=== PATIENT | female | born 1990 | race Caucasian/White ===

== ENCOUNTER → 2021-01-05 07:24 | Outpatient (CLI) | payer OTHER, MEDICAID, SELFPAY ==
[2021-01-05 08:34] LABS: Add Manual Diff / Slide Review NO; Basophils Absolute Auto 0 /uL (0-100); Basophils Percent Auto 0.3 % (0-2); Eosinophils Absolute Auto 100 /uL (0-450); Eosinophils Percent Auto 2.3 % (2-4); Hematocrit 40.3 % (36-46); Hemoglobin 13.7 g/dL (12.0-16.0); Lymphocytes Absolute Auto 2300 /uL (1100-4500); Lymphocytes Percent Auto 36.3 % (25-40); Mean Corpuscular Volume 94.3 fL (80-100); Monocytes Absolute Auto 400 /uL (0-900); Monocytes Percent Auto 7.1 % (3-14); Neutrophils Absolute Auto 3400 /uL (1500-7000); Platelet Count 300 X10^3/uL (150-400); Red Blood Cell Count 4.28 X10^6/uL (4.0-5.2); Red Cell Distribution Width 12.3 % (11.6-14.8); White Blood Cell Count 6.2 X10^3/uL (4.5-11.0)
[2021-01-05 08:59] LABS: Alanine Aminotransferase 38 IU/L (<35); Albumin Globulin Ratio 1.3 (1.0-2.8); Alkaline Phosphatase 63 U/L (38-126); Aspartate Aminotransferase 34 IU/L (14-36); Bilirubin Total 0.5 mg/dL (0.2-1.3); Blood Urea Nitrogen 14 mg/dL (7-17); Calcium 9.3 mg/dL (8.4-10.2); Carbon Dioxide 24 mmol/L (22-32); Chloride 107 mmol/L (98-107); Cholesterol 219 mg/dL (140-199); Estimated Glomerular Filt Rate > 60.0 mL/min (>60); Glucose 78 mg/dL (70-100); HDL Cholesterol 46 mg/dL (40-60); HEMOLYSIS < 15 (0-50); LDL Cholesterol Calculated 142 mg/dL (<100); Potassium 4.2 mmol/L (3.4-5.1); Sodium 140 mmol/L (137-145); Triglycerides 156 mg/dL (35-150)
[2021-01-05 09:34] LABS: Thyroid Stimulating Hormone 1.51 uIU/mL (0.47-4.68)
== END ==
PROVIDERS: PCP Registered Nurse; Referring Provider Registered Nurse; Visit Provider Registered Nurse
DX: R63.5 Abnormal weight gain (principal); R53.83 Other fatigue; Z83.42 Family history of familial hypercholesterolemia
CPT/HCPCS: 36415; 80053; 80061; 84439; 84443; 85025

== ENCOUNTER → 2021-09-21 08:47 | Outpatient (CLI) | payer OTHER, MEDICAID, SELFPAY | PROVIDERS: PCP Registered Nurse; Visit Provider Physician Assistant | DX: J02.9 Acute pharyngitis, unspecified (principal) | CPT/HCPCS: 87070 ==

== ENCOUNTER → 2021-10-18 17:01 | Outpatient (CLI) | payer OTHER, MEDICAID, SELFPAY ==
[2021-10-18 17:45] LABS: Add Manual Diff / Slide Review NO; Basophils Absolute Auto 0 /uL (0-100); Basophils Percent Auto 0.7 % (0-2); Eosinophils Absolute Auto 100 /uL (0-450); Eosinophils Percent Auto 1.4 % (2-4); Hematocrit 38.9 % (36-46); Hemoglobin 13.6 g/dL (12.0-16.0); Lymphocytes Absolute Auto 2800 /uL (1100-4500); Lymphocytes Percent Auto 46.6 % (25-40); Mean Corpuscular Hemoglobin 33.3 PG (26-34); Mean Corpuscular Volume 94.9 fL (80-100); Monocytes Absolute Auto 500 /uL (0-900); Monocytes Percent Auto 8.1 % (3-14); Neutrophils Absolute Auto 2600 /uL (1500-7000); Neutrophils Percent Auto 43.2 % (50-75); Platelet Count 321 X10^3/uL (150-400); Red Cell Distribution Width 12.5 % (11.6-14.8); White Blood Cell Count 6.1 X10^3/uL (4.5-11.0)
[2021-10-18 17:54] LABS: Monotest Negative (Negative)
[2021-10-18 18:18] LABS: Alanine Aminotransferase 24 IU/L (<35); Albumin 4.4 g/dL (3.5-5.0); Albumin Globulin Ratio 1.2 (1.0-2.8); Alkaline Phosphatase 53 U/L (38-126); Aspartate Aminotransferase 33 IU/L (14-36); BUN Creatinine Ratio 15.4 (6-22); Bilirubin Total 0.6 mg/dL (0.2-1.3); Blood Urea Nitrogen 12 mg/dL (7-17); Calcium 8.9 mg/dL (8.4-10.2); Carbon Dioxide 23 mmol/L (22-32); Chloride 106 mmol/L (98-107); Estimated Glomerular Filt Rate > 60 mL/min (>60); Globulin 3.6 g/dL (1.7-4.1); Glucose 92 mg/dL (70-100); Potassium 3.9 mmol/L (3.4-5.1); Sodium 140 mmol/L (137-145)
[2021-10-18 18:31] LABS: Total Iron Binding Capacity 380 ug/dL (265-497); Transferrin 292 mg/dL (206-381)
[2021-10-18 18:52] LABS: TSH w/ Reflex to FT4 1.14 uIU/mL (0.47-4.68)
[2021-10-18 18:53] LABS: Ferritin 59 ng/mL (6-137)
[2021-10-18 18:57] LABS: Hepatitis B Surface Antigen NEGATIVE s/c (NEGATIVE)
[2021-10-18 19:11] LABS: Hep C Virus Ab w/Reflex Quant NEGATIVE s/c (NEGATIVE)
[2021-10-18 19:21] LABS: Iron 101 ug/dL (37-170); Percent Iron Saturation 27 % (15-50)
[2021-10-18 19:27] LABS: HEMOLYSIS 67 (0-50)
[2021-10-18 19:28] LABS: HEMOLYSIS 79 (0-50)
[2021-10-19 04:13] LABS: Hepatitis B Core AB w/Reflex Negative (Negative)
[2021-10-19 07:11] LABS: EBV Ab VCA, IgG >600.0 U/mL (0.0-17.9); EBV EBNA Antibody IgG < 18.0 U/mL (0.0-17.9); EBV Early Antigen AB,IgG <9.0 U/mL (0.0-8.9); EBV Nuclear Antigen Ab IgG <18.0 U/mL (0.0-17.9); EBV Virus IgG Ab > 600.0 U/mL (0.0-17.9); EBV Virus IgM Ab < 36.0 U/mL (0.0-35.9)
[2021-10-20 07:22] LABS: EBV Ab VCA, IgM <36.0 U/mL (0.0-35.9)
== END ==
PROVIDERS: PCP Registered Nurse Diabetes Educator; Referring Provider Registered Nurse Diabetes Educator; Visit Provider Registered Nurse Diabetes Educator
DX: J02.9 Acute pharyngitis, unspecified (principal); R21 Rash and other nonspecific skin eruption; R53.83 Other fatigue; R74.8 Abnormal levels of other serum enzymes
CPT/HCPCS: 36415; 80053; 82728; 83540; 83550; 84443; 85025; 86318; 86663; 86664; 86665; 86704; 86803; 87340

== ENCOUNTER → 2021-12-07 09:34 | Outpatient (CLI) | payer OTHER, MEDICAID, SELFPAY ==
--- NOTE | 2021-12-07 09:35 | DI.US.S_ITS ---
PROCEDURE: US ABDOMEN LIMITED INDICATIONS: elevated liver enzymes TECHNIQUE: Real-time focused scanning was performed of the abdomen, with image documentation. COMPARISON: None. FINDINGS: Liver is diffusely increased in echogenicity. No focal hepatic abnormalities identified. Normal hepatic size. No gallstones identified. Normal gallbladder wall. No pericholecystic fluid. Negative sonographic Goss sign. No biliary dilatation. Pancreas is suboptimally visualized. IMPRESSION: Increased hepatic echogenicity possibly related to hepatic steatosis but other sources of hepatocellular disease cannot be excluded. Recommend clinical correlation. Dictated by: Royce Peraza [facility] Interpreted: Johann Neff MD on 12/07/2021 at 10:46 Transcribed by: JAQUAN on 12/07/2021 at 10:47 Approved by: Johann Neff M.D. on 12/07/2021 at 14:26
== END ==
PROVIDERS: PCP Registered Nurse Diabetes Educator; Referring Provider Registered Nurse Diabetes Educator; Visit Provider Registered Nurse Diabetes Educator
DX: R74.8 Abnormal levels of other serum enzymes (principal)
CPT/HCPCS: 76705

== ENCOUNTER → 2022-08-07 12:33 | Outpatient (CLI) | payer OTHER, MEDICAID, SELFPAY ==
[2022-08-07 13:20] LABS: Influenza A - CEPHEID Flu A NEGATIVE (NEGATIVE); Influenza B - CEPHEID Flu B NEGATIVE (NEGATIVE); Respiratory Syncytial Virus Negative (Negative)
[2022-08-07 13:24] LABS: COVID-19 CEPHEID 4-PLEX PCR Negative (Negative)
== END ==
PROVIDERS: PCP Registered Nurse Diabetes Educator; Visit Provider Nurse Practitioner Family
DX: R05.9 Cough, unspecified (principal); R09.81 Nasal congestion; Z20.822 Contact with and (suspected) exposure to COVID-19
CPT/HCPCS: 0241U

== ENCOUNTER → 2023-04-30 09:52 | Outpatient (CLI) | payer OTHER, MEDICAID, SELFPAY | PROVIDERS: PCP Registered Nurse Diabetes Educator; Visit Provider Physician Assistant | DX: J02.9 Acute pharyngitis, unspecified (principal) | CPT/HCPCS: 87081; 87147 ==

== ENCOUNTER → 2023-05-23 11:35 | Outpatient (CLI) | payer OTHER, MEDICAID, SELFPAY ==
[2023-05-23 12:19] LABS: Influenza A - CEPHEID Flu A NEGATIVE (NEGATIVE); Influenza B - CEPHEID Flu B NEGATIVE (NEGATIVE); Respiratory Syncytial Virus Negative (Negative)
[2023-05-23 12:47] LABS: COVID-19 CEPHEID 4-PLEX PCR Negative (Negative)
== END ==
PROVIDERS: PCP Registered Nurse Diabetes Educator; Visit Provider Nurse Practitioner Family
DX: R05.1 Acute cough (principal)
CPT/HCPCS: 0241U

== ENCOUNTER → 2023-06-13 09:20 | Outpatient (CLI) | payer OTHER, MEDICAID, SELFPAY ==
[2023-06-13 10:06] LABS: Alanine Aminotransferase 26 IU/L (<35); Albumin Globulin Ratio 1.4 (1.0-2.8); Alkaline Phosphatase 59 U/L (38-126); Aspartate Aminotransferase 23 IU/L (14-36); BUN Creatinine Ratio 13.3 (6-22); Bilirubin Total 0.7 mg/dL (0.2-1.3); Blood Urea Nitrogen 11 mg/dL (7-17); Calcium 9.6 mg/dL (8.4-10.2); Carbon Dioxide 25 mmol/L (22-32); Chloride 105 mmol/L (98-107); Estimated Glomerular Filt Rate > 60 mL/min (>60); Globulin 2.9 g/dL (1.7-4.1); Glucose 83 mg/dL (70-100); HEMOLYSIS < 15 (0-50); Potassium 4.2 mmol/L (3.4-5.1); Sodium 138 mmol/L (137-145); Total Protein 6.9 g/dL (6.3-8.2)
== END ==
PROVIDERS: PCP Registered Nurse Diabetes Educator; Referring Provider Physician Assistant; Visit Provider Physician Assistant
DX: B35.1 Tinea unguium (principal); Z79.899 Other long term (current) drug therapy
CPT/HCPCS: 36415; 80053

== ENCOUNTER → 2023-07-11 18:41 | Outpatient (CLI) | payer OTHER, MEDICAID, SELFPAY | PROVIDERS: PCP Registered Nurse Diabetes Educator; Visit Provider Physician Assistant Medical | DX: J02.9 Acute pharyngitis, unspecified (principal) | CPT/HCPCS: 87070; 87880 ==

== ENCOUNTER → 2023-08-29 11:08 | Outpatient (CLI) | payer OTHER, MEDICAID, SELFPAY ==
[2023-08-29 12:05] LABS: Alanine Aminotransferase 19 IU/L (<35); Albumin 3.8 g/dL (3.5-5.0); Albumin Globulin Ratio 1.3 (1.0-2.8); Alkaline Phosphatase 56 U/L (38-126); Aspartate Aminotransferase 20 IU/L (14-36); Bilirubin Total 0.4 mg/dL (0.2-1.3); Bilirubin Unconjugated 0.2 mg/dL (0.0-1.1); HEMOLYSIS < 15 (0-50); Total Protein 6.8 g/dL (6.3-8.2)
== END ==
PROVIDERS: PCP Registered Nurse Diabetes Educator; Referring Provider Registered Nurse Diabetes Educator; Visit Provider Registered Nurse Diabetes Educator
DX: B35.1 Tinea unguium (principal)
CPT/HCPCS: 36415; 80076

== ENCOUNTER → 2023-10-10 13:45 | Outpatient (CLI) | payer OTHER, SELFPAY ==
[2023-10-10 14:36] LABS: Alanine Aminotransferase 15 IU/L (<35); Albumin 3.8 g/dL (3.5-5.0); Albumin Globulin Ratio 1.5 (1.0-2.8); Alkaline Phosphatase 58 U/L (38-126); Aspartate Aminotransferase 21 IU/L (14-36); Bilirubin Total 0.3 mg/dL (0.2-1.3); Bilirubin Unconjugated 0.2 mg/dL (0.0-1.1); Globulin 2.6 g/dL (1.7-4.1); HEMOLYSIS < 15 (0-50); Total Protein 6.4 g/dL (6.3-8.2)
== END ==
PROVIDERS: PCP Registered Nurse Diabetes Educator; Referring Provider Registered Nurse Diabetes Educator; Visit Provider Registered Nurse Diabetes Educator
DX: B35.1 Tinea unguium (principal)
CPT/HCPCS: 36415; 80076

== ENCOUNTER → 2023-11-03 08:58 | Outpatient (CLI) | payer OTHER, SELFPAY ==
[2023-11-03 13:44] LABS: Urine N gonorrhoeae NOT DETECTED
[2023-11-03 13:45] LABS: Urine Chlamydia NOT DETECTED
[2023-11-03 17:51] LABS: Hepatitis B Surface Antigen NEGATIVE s/c (NEGATIVE)
[2023-11-03 18:11] LABS: HIV 1 & 2 Ab/Ag 4th Gen Combo NEGATIVE (NEGATIVE); Hep C Virus Ab w/Reflex Quant NEGATIVE s/c (NEGATIVE)
[2023-11-04 03:31] LABS: HSV 2 IGG AB < 0.91 index (0.00-0.90); HSV1IGG < 0.91 index (0.00-0.90)
[2023-11-04 05:18] LABS: RPR Screen Non Reactive (Non Reactive)
== END ==
PROVIDERS: PCP Registered Nurse Diabetes Educator; Referring Provider Registered Nurse Diabetes Educator; Visit Provider Registered Nurse Diabetes Educator
DX: Z72.51 High risk heterosexual behavior (principal)
CPT/HCPCS: 36415; 86592; 86695; 86696; 86803; 87340; 87389; 87491; 87591

== ENCOUNTER 2024-05-18 21:32 | Emergency (ER) | payer OTHER, SELFPAY ==
[2024-05-18] VITALS (7 sets, daily range): BP systolic 108–134; BP diastolic 58–66; PULSE 67–96; RESP 17–21; TEMP 36.9; O2SAT 92–97; BMI 31.8
--- NOTE | 2024-05-18 22:37 | ED_ITS ---
HPI - URI/Sore Throat General Chief Complaint: Upper Respiratory Symptoms Stated Complaint: fever, cough, mucus Time Seen by Provider: 05/18/24 22:37 Source: patient, RN notes reviewed and old records reviewed Mode of arrival: Ambulatory Limitations: no limitations History of Present Illness HPI Narrative: 34-year-old presents with complaint of fevers, some mild nasal congestion, occasional sore throat and cough. Patient has had several days of symptoms. Has had fevers up to 103 F. states her entire chest and back hurt when she coughs but otherwise no chest pain. She is states she has been wheezy and that she can hear a wheeze. No shortness of breath. No nausea or vomiting. No diarrhea or constipation. No urinary symptoms. No new swelling in extremities. No rash or skin changes. Home medications include bupropion, escitalopram, oral contraceptive. States allergies to sulfa. No tobacco, occasional alcohol, marijuana no other recreational drugs. She states no known sick contacts. Does have 3 children at home she was accompanied by her significant other. Patient tried Tylenol with Mucinex for fever had minimal improvement. Has not tried any ibuprofen Related Data Home Medications Medication Instructions Recorded Confirmed fexofenadine 180 mg tablet 180 mg PO DAILY 05/22/21 11/27/23 (Rosi Allergy) magnesium glycinate 100 mg (as 200 mg PO DAILY 03/19/23 11/27/23 glycinate) tablet multivitamin (Daily Multi-Vitamin 1 tab PO DAILY 03/19/23 11/27/23 tablet) clindamycin phosphate 1 % lotion topical 11/03/23 11/27/23 spironolactone 50 mg tablet 50 mg PO BID 11/03/23 11/27/23 Previous Rx's Medication Instructions Recorded clobetasol 0.05 % topical ointment 1 applic topical BID #45 grams 01/02/22 fluticasone propionate 50 1 spray intranasal Q12H #16 grams 05/23/23 mcg/actuation nasal spray,suspension (Flonase Allergy Relief) bupropion HCl 150 mg 24 hr tablet, 150 mg PO QAM #90 tabs 11/03/23 extended release escitalopram oxalate 10 mg tablet 10 mg PO DAILY #90 tabs 11/03/23 (Lexapro) terbinafine HCl 250 mg tablet 250 mg PO DAILY #42 tabs 11/03/23 levonorgestrel 0.15 mg-ethinyl See Rx Instructions .Route 03/29/24 estradiol 30 mcg tablets,3 mos .COMPLEX #91 tabs pack(91) (Setlakin) Allergies Allergy/AdvReac Type Severity Reaction Status Date / Time sulfamethoxazole Allergy Unknown Verified 11/27/23 08:17 [From ] trimethoprim [From ] Allergy Unknown Verified 11/27/23 08:17 SULFA Allergy Mild RASH,HIVES Uncoded 11/27/23 08:17 Review of Systems Review of Systems ROS Unobtainable: All systems reviewed & are unremarkable except as noted in HPI and below Patient History Medical History Fatty liver disease, nonalcoholic Dyshidrotic eczema Anxiety with depression Screening for HPV (human papillomavirus) Cervical cancer screening Foot pain (~2012) Carpal tunnel syndrome Ankle pain (~2012) Painful menstrual periods Heavy menstrual period Weight gain Fatigue Surgical History Anesthesia History of ankle surgery (~2012) Family History Father Hypertension Hyperlipidemia Mother Anxiety History of bipolar disorder PMDD (premenstrual dysphoric disorder) Depression Hyperlipidemia Mental health problem Brother Anxiety History of bipolar disorder Depression Mental health problem Grandfather Cancer Diabetes mellitus Hyperlipidemia Grandmother Hypertension Hyperlipidemia Grandfather Eye cancer Prostate cancer Grandmother Cancer Social History Smoking Status: Never smoker Smoking Status: Never smoker alcohol intake frequency: a few times a week Substance Use Type: marijuana Exam Narrative Exam Narrative: GEN: well nourished, well appearing female, alert and oriented x 3, patient appears to be in mild distress. HEENT: Atraumatic, pupils are equal round reactive to light, extraocular movements are intact, nares are clear, TMs are clear with no fluid, there is no conjunctival pallor. Throat is erythematous mild tonsillar enlargement, no exudates, midline uvula with no deviation, patient is slightly hoarse no stridor. HEART: Regular rate and rhythm without murmur, clicks, rubs. LUNGS:Lungs clear to auscultation, no wheezes, rales, crackles, chest moves symmetrically, no tachypnea or accessory muscle use ABD:bowel sounds normal, soft, non-tender, no guarding, rebound, rigidity, no masses noted, no hepatosplenomegaly :No CVA tenderness MSCL: Non-tender, no muscle atrophy, muscles strength 5/5 upper and lower extremities, full range of motion, normal gait NEURO:CN 2-12 intact, sensation normal. Initial Vital Signs Initial Vital Signs: Vital Signs Pulse Rate 78 05/18/24 21:35 Blood Pressure 134/66 05/18/24 21:35 Pulse Oximetry 94 05/18/24 21:35 Oxygen Delivery Method Room Air 05/18/24 21:35 Course Orders Ordered: ED Orders 05/18/24 22:43 Chest [XR chest 2V] Stat 05/18/24 22:44 Strep Grp A by PCR Rapid Stat Vital Signs Vital signs: Vital Signs - 8 hr 05/18/24 21:35 05/18/24 21:35 05/18/24 21:38 Temperature 98.4 F Pulse Rate 78 96 H Respiratory Rate 19 Blood Pressure 134/66 134/66 Pulse Oximetry 94 97 Oxygen Delivery Method Room Air Room Air 05/18/24 22:00 05/18/24 22:00 05/18/24 22:30 Temperature Pulse Rate 82 77 Respiratory Rate 21 Blood Pressure 126/64 Pulse Oximetry 94 92 Oxygen Delivery Method Room Air Room Air 05/18/24 22:30 05/18/24 22:56 05/18/24 22:56 Temperature Pulse Rate 92 H Respiratory Rate 19 Blood Pressure 116/66 112/58 L Pulse Oximetry 95 Oxygen Delivery Method 05/18/24 23:00 05/18/24 23:00 05/18/24 23:30 Temperature Pulse Rate 72 Respiratory Rate Blood Pressure 108/62 113/59 L Pulse Oximetry 96 Oxygen Delivery Method Room Air 05/18/24 23:30 Temperature Pulse Rate 67 Respiratory Rate 17 Blood Pressure Pulse Oximetry 96 Oxygen Delivery Method Room Air MDM - URI/Sore Throat Lab Data Labs: Lab Results 05/18/24 Range/Units 22:44 Group A Strep (PCR) Negative (Negative) Imaging Data Chest x-ray: Radiologist's Impression: Close Chest X-Ray (Signed) Connie Mcclain - 05/18/24 Abdomen Ultrasound (Signed) Johann Neff - 12/07/21 Launch?[address] [address] XRay Report Signed Patient: Kelsi Sun MR#: [id number] : 1990 Acct:[id number] Age/Sex: 34 / F Date of Service: 05/18/24 Loc: ED Accession Number: [id number] Procedure: XR chest 2V Ordering Provider: Kamilla Madsen D.O. PROCEDURE: XR CHEST 2V INDICATIONS: fever, cough, chest feels wheezy TECHNIQUE: 2 views of the chest were acquired. COMPARISON: None. FINDINGS: Surgical changes and devices: None. Lungs and pleura: Lungs are clear. No pleural effusions or pneumothorax. Mediastinum: Mediastinal contours are normal. Heart size is normal. Bones and chest wall: No suspicious bony abnormalities. Soft tissues appear unremarkable. IMPRESSION: No acute pulmonary process. Dictated by: Connie Mcclain M.D. on 05/18/2024 at 23:28 Approved by: Connie Mcclain M.D. on 05/18/2024 at 23:29 [facility] Narrative Medical decision making narrative: 34-year-old female has nasal congestion seems most likely upper respiratory infection does have little bit of occasional sore throat and some tonsillar enlargement erythema there has been quite a bit of strep recently so we will obtain rapid strep. Patient's lungs are clear but she states has had some occasional wheeze although none appreciated on exam so chest x-ray was obtained as well. Discussed respiratory panel patient did not at home influenza and COVID swab which was negative they defer any additional viral panel testing. Rapid strep is negative. Chest x-ray is negative. Patient likely has a viral upper respiratory symptoms starting Friday, patient is well-appearing. We will continue with Tylenol/ibuprofen with return precautions. Discharge Plan Departure Patient Disposition: Home Clinical Impression: Upper respiratory infection Activity Restrictions/Additional Instructions: Follow up as needed, your rapid strep is negative, chest x-ray does not show any signs of pneumonia or other changes. Suspect you have a viral illness causing your symptoms these can typically last 7-10 days. You can take acetaminophen up to a 1000 mg every 6 hours and/or ibuprofen up to 600 mg every 6 hours as needed for fevers or muscle aches. Please return for new chest pain or shortness of breath, passing out, persistent vomiting, new swelling of your extremities, coughing up blood or other new or concerning changes. Prescriptions: No Action fluticasone propionate [Flonase Allergy Relief] 50 mcg/actuation spray,suspension 1 spray intranasal Q12H Qty: 16 0RF Rx Instructions: administer into each nostril levonorgestrel-ethinyl estrad [Setlakin] 0.15 mg-30 mcg (91) tablets,dose pack,3 month See Rx Instructions .ROUTE .COMPLEX Qty: 91 3RF Dose Instruction: TAKE ONE TABLET BY MOUTH ONE TIME DAILY Rx Instructions: TAKE ONE TABLET BY MOUTH ONE TIME DAILY fexofenadine [Rosi Allergy] 180 mg tablet 180 mg PO DAILY clobetasol 0.05 % ointment 1 applic topical BID Qty: 45 2RF Rx Instructions: Apply to affected areas of fingers/hands twice daily for two to four weeks. multivitamin [Daily Multi-Vitamin] Tablet 1 tab PO DAILY magnesium glycinate 100 mg tablet 200 mg PO DAILY spironolactone 50 mg tablet 50 mg PO BID clindamycin phosphate 1 % lotion topical bupropion HCl 150 mg tablet extended release 24 hr 150 mg PO QAM Qty: 90 3RF escitalopram oxalate [Lexapro] 10 mg tablet 10 mg PO DAILY Qty: 90 3RF terbinafine HCl 250 mg tablet 250 mg PO DAILY Qty: 42 0RF Rx Instructions: Please remember to repeat liver labs 6 weeks from previous labs (labs have been ordered) Referrals: Anthony Arrieta ARNP [Primary Care Provider] - Stand Alone Forms: Patient Portal/API/Survey
--- NOTE | 2024-05-18 22:43 | DI.RAD.S_ITS ---
PROCEDURE: XR CHEST 2V INDICATIONS: fever, cough, chest feels wheezy TECHNIQUE: 2 views of the chest were acquired. COMPARISON: None. FINDINGS: Surgical changes and devices: None. Lungs and pleura: Lungs are clear. No pleural effusions or pneumothorax. Mediastinum: Mediastinal contours are normal. Heart size is normal. Bones and chest wall: No suspicious bony abnormalities. Soft tissues appear unremarkable. IMPRESSION: No acute pulmonary process. Dictated by: Connie Mcclain M.D. on 05/18/2024 at 23:28 Approved by: Connie Mcclain M.D. on 05/18/2024 at 23:29
[2024-05-18 23:03] LABS: Strep Grp A by PCR Rapid Negative (Negative)
== END 2024-05-18 23:42 | disposition home or self-care (01) ==
PROVIDERS: Emergency Provider Emergency Medicine; PCP Registered Nurse Diabetes Educator
DX: J06.9 Acute upper respiratory infection, unspecified (principal); R05.9 Cough, unspecified; J02.9 Acute pharyngitis, unspecified; R50.9 Fever, unspecified
CPT/HCPCS: 71046; 87651; 99281; 99283

== ENCOUNTER → 2024-06-02 10:34 | Outpatient (CLI) | payer OTHER, SELFPAY ==
--- NOTE | 2024-06-02 10:36 | DI.RAD.S_ITS ---
PROCEDURE: XR CHEST 2V INDICATIONS: Re-evaluate pneumonia TECHNIQUE: 2 views of the chest were acquired. COMPARISON: [facility], CR, XR CHEST 2V, 05/18/2024, 22:49. FINDINGS: New moderate bilateral diffuse peribronchial thickening with patchy predominantly lower lobe opacities suspicious for bronchitis, bronchopneumonia, viral infection, asthma or other process. Follow-up is needed. New or increased mildly prominent david, mildly prominent pulmonary vessels and/or hilar lymph nodes. No pneumothorax, no pleural effusion, no lobar consolidation. Cardiopericardial silhouette within normal limits. IMPRESSION: New moderate peribronchial thickening with opacities as discussed above. Follow-up is needed. New or increased mildly prominent david. If symptoms persist or worsen, or there is high clinical suspicion of thoracic abnormality, CT chest could be performed. Dictated by: Americo Salguero M.D. on 06/02/2024 at 11:52 Approved by: Americo Salguero M.D. on 06/02/2024 at 11:56
== END ==
PROVIDERS: PCP Registered Nurse Diabetes Educator; Referring Provider Registered Nurse Diabetes Educator; Visit Provider Registered Nurse Diabetes Educator
DX: J18.9 Pneumonia, unspecified organism (principal)
CPT/HCPCS: 71046

== ENCOUNTER → 2024-07-15 16:49 | Outpatient (CLI) | payer OTHER, SELFPAY ==
--- NOTE | 2024-07-15 16:51 | DI.RAD.S_ITS ---
PROCEDURE: XR CHEST 2V INDICATIONS: reeval, f/u pneumonia TECHNIQUE: 2 views of the chest were acquired. COMPARISON: [facility], CR, XR CHEST 2V, 06/02/2024, 10:38. FINDINGS: Surgical changes and devices: None. Lungs and pleura: Lungs show of residual increased bibasilar atelectatic changes the opacification is decreased significantly on the left there is mild retrocardiac density which appears to be vascular. Lateral view likewise shows decreased density over the lower thoracic spine suggesting significant improvement with minimal residual.. No pleural effusions or pneumothorax. Mediastinum: Mediastinal contours are normal. Heart size is normal. Bones and chest wall: No suspicious bony abnormalities. Soft tissues appear unremarkable. IMPRESSION: Mild bibasilar atelectatic change. No definite infiltrate. Significant interval improvement. Follow-up on therapy as clinically indicated. Dictated by: Dago Templeton M.D. on 07/16/2024 at 11:51 Approved by: Dago Templeton M.D. on 07/16/2024 at 12:18
== END ==
PROVIDERS: PCP Registered Nurse Diabetes Educator; Referring Provider Registered Nurse Diabetes Educator; Visit Provider Registered Nurse Diabetes Educator
DX: J18.9 Pneumonia, unspecified organism (principal)
CPT/HCPCS: 71046

== ENCOUNTER → 2024-12-02 18:17 | Outpatient (CLI) | payer OTHER, SELFPAY | PROVIDERS: PCP Registered Nurse Diabetes Educator; Visit Provider Chiropractor | DX: J02.9 Acute pharyngitis, unspecified (principal) | CPT/HCPCS: 87070 ==

== ENCOUNTER → 2025-01-25 15:51 | Outpatient (CLI) | payer OTHER, SELFPAY ==
[2025-01-25 16:14] LABS: Add Manual Diff / Slide Review NO; Hematocrit 38.8 % (36-46); Hemoglobin 13.8 g/dL (12.0-16.0); Lymphocytes Absolute Auto 2800 /uL (1100-4500); Mean Corpuscular HGB Conc 35.6 % (30-36); Mean Corpuscular Hemoglobin 34.2 PG (26-34); Mean Corpuscular Volume 96.0 fL (80-100); Platelet Count 344 X10^3/uL (150-400)
[2025-01-25 16:26] LABS: Hemoglobin A1C% w Est Avg Glu 4.8 % (4.0-6.0)
[2025-01-25 16:29] LABS: Alanine Aminotransferase 29 IU/L (<35); Albumin 4.3 g/dL (3.5-5.0); Albumin Globulin Ratio 1.4 (1.0-2.8); Alkaline Phosphatase 64 U/L (38-126); Blood Urea Nitrogen 16 mg/dL (7-17); Calcium 9.6 mg/dL (8.4-10.2); Carbon Dioxide 25 mmol/L (22-32); Chloride 102 mmol/L (98-107); Estimated Glomerular Filt Rate > 60 mL/min (>60); Globulin 3.1 g/dL (1.7-4.1); Glucose 90 mg/dL (70-99); HEMOLYSIS 23 (0-50); Potassium 4.6 mmol/L (3.4-5.1); Sodium 137 mmol/L (137-145); Total Protein 7.4 g/dL (6.3-8.2)
[2025-01-25 16:47] LABS: Free T4, Direct Thyroxine 0.78 ng/dL (0.78-2.19); Vitamin D 25 Hydroxy (D3) 33.6 ng/mL (30.0-100.0)
[2025-01-25 17:01] LABS: Thyroid Stimulating Hormone 1.56 uIU/mL (0.47-4.68)
== END ==
PROVIDERS: PCP Registered Nurse Diabetes Educator; Referring Provider Registered Nurse Diabetes Educator; Visit Provider Registered Nurse Diabetes Educator
DX: R63.5 Abnormal weight gain (principal); R53.83 Other fatigue; R06.00 Dyspnea, unspecified
CPT/HCPCS: 36415; 80053; 82306; 83036; 84439; 84443; 85025

== ENCOUNTER → 2025-01-25 16:05 | Outpatient (CLI) | payer OTHER, SELFPAY ==
--- NOTE | 2025-01-25 16:07 | DI.RAD.S_ITS ---
PROCEDURE: XR CHEST 2V INDICATIONS: re-evaluate pneumonia TECHNIQUE: 2 views of the chest were acquired. COMPARISON: [facility], , XR CHEST 2V, 07/15/2024, 17:03. FINDINGS: Heart, mediastinum and pulmonary vascular: Heart is normal in size and configuration. Mediastinum is unremarkable. Pulmonary vascular is normal. Lungs: Clear Pleural spaces: Normal-no effusions or pneumothorax. IMPRESSION: Normal chest. No evidence of pneumonia on today's exam Dictated by: Bello Noguera M.D. on 01/26/2025 at 11:13 Approved by: Bello Noguera M.D. on 01/26/2025 at 11:14
== END ==
PROVIDERS: PCP Registered Nurse Diabetes Educator; Referring Provider Registered Nurse Diabetes Educator; Visit Provider Registered Nurse Diabetes Educator
DX: J18.9 Pneumonia, unspecified organism (principal); R63.5 Abnormal weight gain; R53.83 Other fatigue; R06.00 Dyspnea, unspecified
CPT/HCPCS: 36415; 71046; 80053; 82306; 83036; 84439; 84443; 85025

== ENCOUNTER → 2025-03-17 07:50 | Outpatient (CLI) | payer OTHER, SELFPAY | LOC: CAR 07:51 | PROVIDERS: PCP Registered Nurse Diabetes Educator; Referring Provider Registered Nurse Diabetes Educator; Visit Provider Registered Nurse Diabetes Educator | DX: R00.2 Palpitations (principal); R06.09 Other forms of dyspnea; R42 Dizziness and giddiness | CPT/HCPCS: 93242 ==

== ENCOUNTER → 2025-03-22 13:54 | Outpatient (CLI) | payer OTHER, SELFPAY ==
--- NOTE | 2025-03-22 13:58 | DI.ECHO.S_ITS ---
[facility] : : [address] : : [place] : : [id number] : : Phone: [phone] Echocardiogram Report + + :Name: KANNAN AVERY Study Date: 03/22/2025 Height: 63 in : :[facility] ReadingLocation: Weight: 215 lb : : Gender: Female BSA: 2.0 m2 : :: 1990 Age: 35 yrs BP: 118/70 mmHg: :Reason For Study: EXERTIONAL DYSPNEA, PALPITATIONS : :Ordering Physician: INOCENCIO, : :RAMA Performed By: Marta Chopra : :Referring: RAMA PAINTER : + + Interpretation Summary - The left ventricular contractility is normal. Estimated ejection fraction is greater than 60% with no segmental wall motion abnormalities. No LVH. Normal diastolic function. - The right ventricular contractility is normal. - All cardiac chambers are of normal size. - No significant valvular abnormalities. - No obvious intracardiac shunts. - No obvious intracardiac masses nor thrombi. - No hemodynamically significant pericardial effusion. - Low right-sided filling pressures. Conclusion: Normal biventricular function with no significant valvular nor structural abnormalities. Procedure: A two-dimensional transthoracic echocardiogram with color flow and Doppler was performed. The study quality was technically adequate. There is no prior echocardiogram noted for this patient. The patient was in sinus rhythm with heart rates between 50-64 bpm during the exam. Left Ventricle: The left ventricle is normal in size and wall thickness. The ejection fraction is estimated to be 60-65%. Normal diastolic function. Right Ventricle: The right ventricle is normal size. The right ventricular systolic function is normal. Atria: The left atrial size is normal. Right atrial size is normal. There is no Doppler evidence for an interatrial shunt. Mitral Valve: The mitral valve leaflets appear to open well. There is trace mitral regurgitation. Aortic Valve: The aortic valve is trileaflet. The aortic valve opens well. There is no aortic valve stenosis. No aortic regurgitation is present. Tricuspid Valve: The tricuspid valve leaflets are thin and pliable. There is trace tricuspid regurgitation. The right ventricular systolic pressure is estimated to be at least 19 mmHg based on an estimated right atrial pressure of 3 mm Hg. Pulmonic Valve: The pulmonic valve leaflets are thin and pliable; valve motion is normal. There is trace pulmonic regurgitation. Great Vessels: The aortic root is normal size. The dimensions of the ascending aorta are normal. The IVC is of normal diameter and collapses greater than 50% with a sniff. This suggests a low right atrial pressure of 3 mm Hg. Pericardium/ Pleura There is no pericardial effusion. There is no pleural effusion. MMode/2D Measurements & Calculations LVIDd: 5.2 cm LVOT diam: 2.0 cm LVIDs: 3.5 cm Ao root diam: 2.9 cm FS: 33.2 % asc Aorta Diam: 2.5 cm IVSd: 0.86 cm Ao Arch Diam (Prox Trans): 2.5 cm LVPWd: 0.75 cm LV varghese. diameter/BSA (cm/m^2): 2.6 LV sys. diameter/BSA (cm/m^2): 1.7 LA A2 area: 17.0 cm2 RA long axis: 4.7 cm LA A4 area: 16.1 cm2 RA area: 15.5 cm2 LA length (vol): 5.0 cm RA vol: 43.3 ml LA vol: 46.1 ml RA : 21.7 ml/m2 LA vol index: 23.1 ml/m2 IVC diam: 1.8 cm RVD1 (basal): 4.0 cm RVD2 (mid): 3.5 cm TAPSE: 2.1 cm Doppler Measurements & Calculations Ao V2 max: 140.1 cm/sec LVOT Max Bobby: 96.3 cm/sec Ao V2 mean: 94.3 cm/sec LV V1 max P.7 mmHg Ao max P.8 mmHg LV V1 VTI: 20.8 cm Ao mean P.2 mmHg MAGALYS(I,D): 2.2 cm2 Ao V2 VTI: 30.7 cm MAGALYS(V,D): 2.2 cm2 sev ratio: 0.68 MAGALYS indexed to BSA (cm^2/m^2): 1.1 MV E max bobby: 79.2 cm/sec TR max bobby: 202.0 cm/sec MV A max bobby: 42.9 cm/sec TR max P.3 mmHg MV E/A: 1.8 PA V2 max: 81.4 cm/sec Med Peak E' Bobby: 12.8 cm/sec PA V2 mean: 56.2 cm/sec E/E' med: 6.2 PA mean P.4 mmHg Lat Peak E' Bobby: 15.2 cm/sec PA pr(Accel): 16.1 mmHg E/E' lat: 5.2 E/e' average: 5.7 MV dec time: 0.21 sec SV(LVOT): 67.8 ml Reading Physician:PAULETTE
== END ==
PROVIDERS: PCP Registered Nurse Diabetes Educator; Referring Provider Registered Nurse Diabetes Educator; Visit Provider Registered Nurse Diabetes Educator
DX: R06.09 Other forms of dyspnea (principal); R00.2 Palpitations; R55 Syncope and collapse; R42 Dizziness and giddiness
CPT/HCPCS: 93306